=== PATIENT | male | born 1970 | race Caucasian/White ===

== ENCOUNTER 2024-02-01 09:25 | Emergency (ER) | payer BC ==
[~2024-02-01] VITALS: Ht 165.1 cm; Wt 79.4 kg
[2024-02-01 09:52] LABS: BASOPHILS % (AUTO) 0.2 % (0.0-2.0); EOSINOPHILS % (AUTO) 0.2 % (0.0-7.0); HEMATOCRIT 49.3 % (36.7-47.1); HEMOGLOBIN 16.8 g/dL (12.5-16.3); LYMPHOCYTES # (AUTO) 0.3 K/uL (0.8-4.8); LYMPHOCYTES % (AUTO) 3.5 % (20.5-51.5); MEAN CORPUSCULAR HEMOGLOBIN 31.4 uug (23.8-33.4); MEAN CORPUSCULAR HGB CONC 34 g/dL (32.5-36.3); MONOCYTES # (AUTO) 0.3 K/uL (0.1-1.30); MONOCYTES % (AUTO) 3.7 % (0.0-11.0); NEUTROPHILS # (AUTO) 7.9 K/uL (1.8-8.9); NEUTROPHILS % (AUTO) 92.4 % (38.5-71.5); PLATELET COUNT (AUTO) 199 K/uL (152-348); RED BLOOD CELL COUNT(AUTO) 5.36 MIL/uL (4.06-5.63); RED CELL DISTRIBUTION WIDTH 12.9 % (12.1-16.2); WHITE BLOOD COUNT (AUTO) 8.5 K/uL (3.6-10.2)
[2024-02-01] MEDS ORDERED: METOCLOPRAMIDE HCL 10 MG/2 ML VIAL ONE (09:54)
[2024-02-01] MEDS ORDERED: diphenhydrAMINE 50 MG/1 ML VIAL ONE (09:54)
[2024-02-01] MEDS ORDERED: FAMOTIDINE. 20 MG/2 ML VIAL IV ONE (09:55)
[2024-02-01 10:02] LABS: CALCIUM 9.5 mg/dL (8.5-10.1); CREATININE 0.8 mg/dL (0.6-1.3); POTASSIUM 3.8 mmol/L (3.5-5.1)
[2024-02-01] MEDS: IV NORMAL SALINE 1000 ML BAG IV ONE ×2 (10:02)
[2024-02-01] MEDS: FAMOTIDINE. 20 MG/2 ML VIAL IV ONE (10:02)
[2024-02-01] MEDS: diphenhydrAMINE 50 MG/1 ML VIAL IV ONE (10:02)
[2024-02-01] MEDS: METOCLOPRAMIDE HCL 10 MG/2 ML VIAL IV ONE (10:02)
[2024-02-01 10:08] LABS: ALBUMIN 3.6 g/dL (3.4-5.0); BILIRUBIN,DIRECT 0.2 mg/dL (0.0-0.2)
[2024-02-01 11:03] LABS: *BILIRUBIN,URIN NEGATIVE (NEGATIVE); *BLOOD, URINE NEGATIVE (NEGATIVE); *CLARITY,URINE CLEAR (CLEAR); *COLOR,URINE YELLOW (YELLOW); *KETONES,URINE NEGATIVE (NEGATIVE); *PROTEIN,URINE 1+ (NEGATIVE); LEUKOCYTE ESTERASE ,URINE NEGATIVE (NEGATIVE); NITRITE, URINE NEGATIVE (NEGATIVE); UGLUCOSE NEGATIVE (NEGATIVE)
[2024-02-01 11:37] LABS: DIFFERENTIAL COMMENT 1
[2024-02-01 11:47] VITALS: BP 102/66; TEMP 98.2; O2SAT 98
[2024-02-01] MEDS ORDERED: ONDA4TAB11 PO (11:48)
[2024-02-01 12:01] LABS: RBC,URINE 0-3 /HPF (0-3); WBC,URINE 0-3 /HPF (0-3)
== END 2024-02-01 11:53 | disposition home or self-care (01) ==
LOC: ER 09:25
DX: E86.0 Dehydration (principal); R11.2 Nausea with vomiting, unspecified; R19.7 Diarrhea, unspecified; Z79.899 Other long term (current) drug therapy
CPT/HCPCS: 99284; 96374; 96375; 96361; 80076; 80048; 81001; 83690; 85025; 36415; J1200; J3490; J2765; J7040; A4606; A4663